=== PATIENT | male | born 1950 | race Caucasian/White ===

== ENCOUNTER 2017-02-10 14:43 | Inpatient (IN) | payer BC, OTHER ==
[2017-02-10] VITALS (8 sets, daily range): BP systolic 135–151; BP diastolic 64–72; PULSE 55–72; RESP 14–18; TEMP 97.6–97.9; O2SAT 95–98
[~2017-02-10] VITALS: Ht 182.9 cm; Wt 89.5 kg
[~2017-02-10 14:43] MED LIST: CLOP75 PO; LORTA5 PO; LOTE40TA PO; METF-324 PO; POTA75TA PO
[2017-02-10] MEDS ORDERED: IOHEXOL 350 MG/ML 10 ML VIAL (for RAD DIAG) IVCONTRAST ONE (14:44)
[2017-02-10] MEDS ORDERED: ASPIRIN 81 MG CHEW TAB PO ONE (15:00)
[2017-02-10] MEDS ORDERED: SODIUM CHLORIDE 0.9% FLUSH 10 ML FLUSH IVF PRN (15:00)
[2017-02-10 15:17] LABS: AUTOMATED NEUTROPHIL # 7.3 TH/MM3 (1.8-7.7); BASOPHIL % 0.5 % (0.0-2.0); EOSINOPHIL # 0.1 TH/MM3 (0-0.4); EOSINOPHIL % 1.1 % (0.0-4.0); HEMATOCRIT 37.5 % (39.0-51.0); HEMO FLAGS DIFF FINAL; LYMPH % 14.2 % (9.0-44.0); LYMPHOCYTE # 1.3 TH/MM3 (1.0-4.8); MEAN CELL VOLUME 91.5 FL (80.0-100.0); MEAN CORPUSCULAR HEMOGLOBIN 32.2 PG (27.0-34.0); MEAN CORPUSCULAR HGB CONC 35.2 % (32.0-36.0); MONO % 4.9 % (0.0-8.0); NEUT % 79.3 % (16.0-70.0); PLATELET COUNT 167 TH/MM3 (150-450); RED BLOOD COUNT 4.09 MIL/MM3 (4.50-5.90); RED CELL DISTRIBUTION WIDTH 13.1 % (11.6-17.2); WHITE BLOOD COUNT 9.2 TH/MM3 (4.0-11.0)
--- NOTE | 2017-02-10 15:19 | PD ---
HPI Chief Complaint: Chest Pain Time Seen by Provider: 14:52 Travel History International Travel<30 days: Yes Contact w/Intl Traveler<30days: Yes Name of Country Traveled to: [place] Traveled to known affect area: No History of Present Illness HPI Patient is a 66-year-old male presents emergency department for evaluation of chest pain.Patient states he was at home doing some chores when he had sudden onset of left-sided chest pain accompanied with diaphoresis and mild nausea without vomiting and feeling he is going to faint. He does have a history of coronary artery disease and stents placed several years ago at outside hospital. The patient also states that he had a cardiac catheterization over the summer of this year showing some mild blockages but nothing requiring intervention. 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 He states he didn't receive nitroglycerin by EMS in route and is beginning to feel better but the pain is starting to come back. Left chest radiating to the left shoulder, pressure, associated signs symptoms as above in context as above. PFSH Past Medical History Cardiac Catheterization: Yes Cardiovascular Problems: Yes (SD 2004 AND 2 STENTS ) High Cholesterol: Yes Chest Pain: Yes Coronary Artery Disease: Yes Diabetes: Yes (TYPE II ) Patient Takes Glucophage: No (PT CANT TELL ME HIS TYPE II MED) Hypertension: Yes Myocardial Infarction: Yes (2005) Past Surgical History Coronary Stent: Yes (X2) Social History Alcohol Use: No (QUIT 2013) Tobacco Use: Yes (1 PPD) Substance Use: No Allergies-Medications (Allergen,Severity, Reaction): Coded Allergies: No Known Allergies (Unverified Allergy, Unknown, 02/10/17) Reported Meds & Prescriptions Reported Meds & Active Scripts Active Reported Metformin (Metformin HCl) 1,000 Mg Tab 1,000 Mg PO DAILY With a meal Norvasc (Amlodipine Besylate) 5 Mg Tab 5 Mg PO DAILY Benazepril (Benazepril HCl) 40 Mg Tab 40 Mg PO DAILY Simvastatin 40 Mg Tab 40 Mg PO HS Aspirin 81 Mg Chew 81 Mg CHEW DAILY Review of Systems Except as stated in HPI: all other systems reviewed are Neg Physical Exam Narrative GENERAL: Well-developed well-nourished in no obvious distress. SKIN: Focused skin assessment warm/dry. HEAD: Atraumatic. Normocephalic. EYES: Pupils equal and round. No scleral icterus. No injection or drainage. ENT: No nasal bleeding or discharge. Mucous membranes pink and moist. NECK: Trachea midline. No JVD. CARDIOVASCULAR: Regular rate and rhythm. No murmur appreciated. 2+ bilateral equal pulses in all 4 extremity's. No reproducible chest pain. RESPIRATORY: No accessory muscle use. Clear to auscultation. Breath sounds equal bilaterally. GASTROINTESTINAL: Abdomen soft, non-tender, nondistended. Hepatic and splenic margins not palpable. MUSCULOSKELETAL: No obvious deformities. No clubbing. No cyanosis. No edema. NEUROLOGICAL: Awake and alert. No obvious cranial nerve deficits. Motor grossly within normal limits. Normal speech. PSYCHIATRIC: Appropriate mood and affect; insight and judgment normal. Data Data Last Documented VS Vital Signs Date Time Temp Pulse Resp B/P (MAP) Pulse Ox O2 Delivery O2 Flow Rate FiO2 02/10/17 14:59 98 Nasal Cannula 2.00 02/10/17 14:56 14 02/10/17 14:51 97.6 62 135/67 (89) Orders Orders Electrocardiogram (02/10/17 14:52) Ckmb (Isoenzyme) Profile (02/10/17 14:52) Complete Blood Count With Diff (02/10/17 14:52) Comprehensive Metabolic Panel (02/10/17 14:52) Magnesium (Mg) (02/10/17 14:52) Prothrombin Time / Inr (Pt) (02/10/17 14:52) Act Partial Throm Time (Ptt) (02/10/17 14:52) Troponin I (02/10/17 14:52) Chest, Single Ap (02/10/17 14:52) Ecg Monitoring (02/10/17 14:52) Iv Access Insert/Monitor (02/10/17 14:52) Oximetry (02/10/17 14:52) Oxygen Administration (02/10/17 14:52) Aspirin Chew (Aspirin Chew) (02/10/17 15:00) Sodium Chloride 0.9% Flush (Ns Flush) (02/10/17 15:00) Nitroglycerin Sl (Nitrostat Sl) (02/10/17 15:30) Ct Thorax/ Chest W Iv Contrast (02/10/17 ) Iohexol 350 Inj (Omnipaque 350 Inj) (02/10/17 14:44) Admit Order (Ed Use Only) (02/10/17 ) Activity Bed Rest With Brp (02/10/17 17:39) Vital Signs (Adult) Q4H (02/10/17 17:39) Cardiac Rhythm .As Directed (02/10/17 17:39) Notify Dr: Other .PRN (02/10/17 17:39) Notify Parameters (02/10/17 17:39) Resp Oxygen Nasal Cannula (02/10/17 ) Ckmb (Isoenzyme) Profile (02/10/17 17:39) Ckmb (Isoenzyme) Profile (02/10/17 20:39) Troponin I (02/10/17 17:39) Troponin I (02/10/17 20:39) Electrocardiogram (02/10/17:39) Electrocardiogram (02/10/17 20:39) ^ Obtain (02/10/17 17:39) Sodium Chloride 0.9% Flush (Ns Flush) (02/10/17 17:45) Sodium Chloride 0.9% Flush (Ns Flush) (02/10/17 21:00) Labs Laboratory Tests Test 02/10/17 15:00 White Blood Count 9.2 TH/MM3 Red Blood Count 4.09 MIL/MM3 Hemoglobin 13.2 GM/DL Hematocrit 37.5 % Mean Corpuscular Volume 91.5 FL Mean Corpuscular Hemoglobin 32.2 PG Mean Corpuscular Hemoglobin Concent 35.2 % Red Cell Distribution Width 13.1 % Platelet Count 167 TH/MM3 Mean Platelet Volume 8.9 FL Neutrophils (%) (Auto) 79.3 % Lymphocytes (%) (Auto) 14.2 % Monocytes (%) (Auto) 4.9 % Eosinophils (%) (Auto) 1.1 % Basophils (%) (Auto) 0.5 % Neutrophils # (Auto) 7.3 TH/MM3 Lymphocytes # (Auto) 1.3 TH/MM3 Monocytes # (Auto) 0.4 TH/MM3 Eosinophils # (Auto) 0.1 TH/MM3 Basophils # (Auto) 0.0 TH/MM3 CBC Comment DIFF FINAL Differential Comment Prothrombin Time 12.3 SEC Prothromb Time International Ratio 1.1 RATIO Activated Partial Thromboplast Time 20.7 SEC Blood Urea Nitrogen 20 MG/DL Creatinine 1.30 MG/DL Random Glucose 174 MG/DL Total Protein 6.6 GM/DL Albumin 3.6 GM/DL Calcium Level 8.6 MG/DL Magnesium Level 1.8 MG/DL Alkaline Phosphatase 64 U/L Aspartate Amino Transf (AST/SGOT) 16 U/L Alanine Aminotransferase (ALT/SGPT) 30 U/L Total Bilirubin 0.3 MG/DL Sodium Level 137 MEQ/L Potassium Level 4.0 MEQ/L Chloride Level 103 MEQ/L Carbon Dioxide Level 23.4 MEQ/L Anion Gap 11 MEQ/L Estimat Glomerular Filtration Rate 56 ML/MIN Total Creatine Kinase 65 U/L Troponin I LESS THAN 0.02 NG/ML MDM Medical Decision Making Medical Screen Exam Complete: Yes Emergency Medical Condition: Yes Differential Diagnosis ACS, AMI, pneumonia. Narrative Course Patient roomed emergency department, EKG is completely normal without any concerning ST segment changes. Patient is chest pain-free on arrival additional nitroglycerin was ordered because his pain was starting to return. This again relieved his symptoms. He was given aspirin, initial troponin negative. Chest x-ray showed a possible mediastinal mass and the patient was sent for CAT scan which revealed no significant abnormality. The patient was placed in the chest pain center for observation given his after-hours protocol orders were placed. His repeat troponin came back equivocal at 0.18. Given his history and his story for ACS the decision was made to heparinize the patient was determined to be low risk for adverse outcome of anticoagulation therapy. Discussed with patient need for upgrade to inpatient admission and he is agreeable. The patient was discussed with Dr. Winter who will admit. Diagnosis Primary Impression: Acute coronary syndrome Admitting Information Admitting Physician Requests: Admit Condition: Stable Chente Andujar MD Feb 10, 2017 15:19
[2017-02-10] MEDS ORDERED: NITROGLYCERIN 0.4 MG SL 25 TABS/BTL SL SCH (15:30)
[2017-02-10 15:32] LABS: ALT (GPT) 30 U/L (12-78); ANION GAP 11 MEQ/L (5-15); AST (GOT) 16 U/L (15-37); BICARBONATE 23.4 MEQ/L (21.0-32.0); BLOOD UREA NITROGEN 20 MG/DL (7-18); CHLORIDE 103 MEQ/L (98-107); GLOMERULAR FILTRATION RATE 56 ML/MIN (>89); MAGNESIUM 1.8 MG/DL (1.5-2.5); SODIUM (NA) 137 MEQ/L (136-145)
[2017-02-10] MEDS ORDERED: BENA40TA PO (15:32)
[2017-02-10] MEDS ORDERED: METF1000 PO (15:32)
[2017-02-10] MEDS ORDERED: ASPI-516 CHEW (15:32)
[2017-02-10] MEDS ORDERED: AMLO5 PO (15:32)
[2017-02-10] MEDS ORDERED: SIMV40TA PO (15:32)
--- NOTE | 2017-02-10 15:35 | RADRPT ---
EXAM DATE/TIME: 02/10/2017 15:01 [facility] COMPARISON: No previous studies available for comparison. INDICATIONS : Short of breath, chest pain. MEDICAL HISTORY : Myocardial infarction. SURGICAL HISTORY : Coronary artery stent. ENCOUNTER: Initial ACUITY: 1 day PAIN SCORE: 5/10 LOCATION: Bilateral chest FINDINGS: A single portable frontal view of the chest shows a focal nodular density involving the right paratra cheal stripe. This projects just below the right clavicle. Heart is normal in size. Lungs are clear. No effusions. A degenerative thoracic spine. 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 CONCLUSION: 1. Focal nodular density involving the right paratracheal stripe. Although this could relate to the p atient's vasculature I cannot exclude a mediastinal mass. Consider CT of the thorax with IV contrast to further evaluate. 2. No acute infiltrate or effusion. Bob Reed Jr., MD on February 10, 2017 at 15:31 Board Certified Radiologist. This report was verified electronically.
[2017-02-10 15:36] LABS: APTT (PATIENT) 20.7 SEC (24.3-30.1); INTERNATIONAL NORMALIZED RATIO 1.1 RATIO; PROTHROMBIN TIME - PATIENT 12.3 SEC (9.8-11.6)
[2017-02-10 15:37] LABS: ALKALINE PHOSPHATASE 64 U/L (45-117); TOTAL BILIRUBIN ADULT 0.3 MG/DL (0.2-1.0)
[2017-02-10 15:41] LABS: CREATINE KINASE 65 U/L (39-308)
--- NOTE | 2017-02-10 17:16 | RADRPT ---
EXAM DATE/TIME: 02/10/2017 16:52 [facility] COMPARISON: No previous studies available for comparison. INDICATIONS : Patient complains of chest pain and short of breath. IV CONTRAST: 97 cc Omnipaque 350 (iohexol) IV RADIATION DOSE: 5.61 CTDIvol (mGy) MEDICAL HISTORY : Cardiovascular disease. Hypertension. Diabetes mellitus type 2. SURGICAL HISTORY : coronary stent x 2 ENCOUNTER: Initial ACUITY: 1 day PAIN SCALE: 2/10 LOCATION: chest TECHNIQUE: Volumetric scanning of the chest was performed. Using automated exposure control and adjustment of t he mA and/or kV according to patient size, radiation dose was kept as low as reasonably achievable to obtain optimal diagnostic quality images. DICOM format image data is available electronically for review and comparison. Follow-up recommendations for detected pulmonary nodules are based at a minimum on nodule size and pa tient risk factors according to Fleischner Society Guidelines. FINDINGS: LUNGS: There is no consolidation or pneumothorax. No concerning pulmonary nodule is visualized. PLEURA: There is no pleural thickening or pleural effusion. MEDIASTINUM: Extensive coronary calcifications. Negative for simple emboli. AXILLAE: Within normal limits. No lymphadenopathy. SKELETAL: Within normal limits for patient age. MISCELLANEOUS: The visualized upper abdominal organs demonstrate no acute abnormality. CONCLUSION: Coronary calcifications, negative for central pulmonary emboli. Mohinder Zavala MD FACR on February 10, 2017 at 17:13 Board Certified Radiologist. This report was verified electronically.
[2017-02-10] MEDS ORDERED: SODIUM CHLORIDE 0.9% FLUSH 10 ML FLUSH IV FLUSH PRN ×2 (17:45→20:00)
[2017-02-10] MEDS ORDERED: HEPARIN-D5W 25,000 U/250 ML 250 ML IV PRN (19:30)
[2017-02-10] MEDS ORDERED: HEPARIN SODIUM - IV 10,000 UNITS/10 ML VIAL IV ONE (19:30)
[2017-02-10] MEDS ORDERED: GLUCAGON 1 MG/ML VIAL OTHER PRN (19:45)
[2017-02-10] MEDS ORDERED: DEXTROSE 50% IN WATER 50 ML VIAL(D50) IV PUSH PRN (19:45)
[2017-02-10] MEDS ORDERED: ACETAMINOPHEN 500 MG CPLT PO PRN (20:00)
[2017-02-10] MEDS ORDERED: MORPHINE SULFATE 4 MG/ML INJ IV PUSH PRN (20:00)
[2017-02-10] MEDS ORDERED: SODIUM CHLORIDE 0.9% FLUSH 10 ML FLUSH IV FLUSH SCH (21:00)
[2017-02-10] MEDS ORDERED: NON-FORMULARY DRUG (Simvastatin 40 MG) PO SCH (21:00)
[2017-02-10] MEDS ORDERED: CHLORHEXIDINE GLUCONATE 2 % 1 PACK (2 CLOTHS)(extra cloths) TOPICAL PRN (21:15)
[2017-02-10] MEDS: PRAVASTATIN SOD 80 MG TAB PO SCH (22:27)
[2017-02-10] MEDS: SODIUM CHLORIDE 0.9% FLUSH 10 ML FLUSH IV FLUSH SCH (22:27)
[2017-02-10] MEDS: INSULIN ASPART SUPPLEMENTAL SCALE SQ SCH (22:46)
--- NOTE | 2017-02-10 23:03 | HHI.HP ---
[facility] Unknown Admission Diagnosis Chest pain Diagnoses: (1) Acute coronary syndrome Chief Complaint: Left sided chest pain Travel History International Travel<30 Days: Yes Contact w/Intl Traveler <30 Da: Yes Name of Country Traveled to: [facility], [place] Traveled to Known Affected Are: No History of Present Illness Mr. Calvert is a very pleasant 66-year-old male with a history of coronary artery disease status post cardiac stenting 2 in 2004 in [place], hypertension , diabetes mellitus, and hyperlipidemia who is a "snowbird" from [place] who developed chest pain about half an hour before 2 PM today and presented to the emergency room for evaluation. He was found to have NSTEMI and symptoms consistent with ACS. The patient states he was at home working on chores when he began to experience moderate substernal chest pain that radiated to his left shoulder. His symptoms were accompanied by significant diaphoresis but he denies any associated shortness of breath, palpitations, nausea, or vomiting. He called his who told him he needed to go to the hospital. He reports his symptoms are similar to when he had his NM in 2004. 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 All of his doctors are in [place]. In October 2016, he had symptoms of frequent coughing spells and syncopal episodes. He saw his envelope stamping machine operator in [place] and a cardiac catheterization was done at that time. He states that he had some blockage that would take a "lino hammer", to get through according to his envelope stamping machine operator but no further management was indicated. He was told he had COPD and needed to quit smoking which he did for 6 weeks. But then he started smoking again - though he reduce the amount from 2-1/2 packs per day to one pack per day. He has been working very hard lately on [place]. He denies any recent fever, chills, shortness of breath, cough, cold symptoms, nausea, vomiting, diarrhea, black stool, tarry stool, or hematuria. Review of Systems Except as stated in HPI: all other systems reviewed are Neg Past Family Social History Past Medical History Coronary artery disease status post cardiac stenting stents with most recent cardiac catheterization in October 2016 Hyperlipidemia Hypertension Diabetes mellitus COPD Denies asthma, atrial fibrillation, congestive heart failure, liver problems, kidney problems, DVT, PE, strokes, seizures, thyroid problems, cancer, prostate problems. . Past Surgical History Right shoulder repair status post fracture . Reported Medications Reported Meds & Active Scripts Active Reported Metformin (Metformin HCl) 1,000 Mg Tab 1,000 Mg PO DAILY With a meal Norvasc (Amlodipine Besylate) 5 Mg Tab 5 Mg PO DAILY Benazepril (Benazepril HCl) 40 Mg Tab 40 Mg PO DAILY Simvastatin 40 Mg Tab 40 Mg PO HS Aspirin 81 Mg Chew 81 Mg CHEW DAILY . Allergies: Coded Allergies: No Known Allergies (Unverified Allergy, Unknown, 02/10/17) Active Ordered Medications Current Medications Aspirin (Aspirin Chew) 324 mg ONCE ONCE PO Last administered on 02/10/17 15: 13; Start 02/10/17 at 15:00; Stop 02/10/17 at 15:01; Status DC Sodium Chloride (NS Flush) 2 ml UNSCH PRN IVF FLUSH AFTER USING IV ACCESS; Start 02/10/17 at 15:00; Stop 02/10/17 at 19:20; Status DC Nitroglycerin (Nitrostat Sl) 0.4 mg Q5M SL Last administered on 02/10/17 15: 24; Start 02/10/17 at 15:30; Stop 02/10/17 at 15:36; Status DC Iohexol (Omnipaque 350 Inj) 97 ml STK-MED ONCE IVCONTRAST Last administered on 02/10/17 14:44; Start 02/10/17 at 14:44; Stop 02/10/17 at 17:07; Status DC Sodium Chloride (NS Flush) 2 ml UNSCH PRN IV FLUSH FLUSH AFTER USING IV ACCESS ; Start 02/10/17 at 17:45; Stop 02/10/17 at 19:59; Status DC Sodium Chloride (NS Flush) 2 ml BID IV FLUSH ; Start 02/10/17 at 21:00; Stop 02/10/17 at 21:00; Status DC Heparin Sodium (Porcine) (Heparin Inj) 4,000 units ONCE ONCE IV Last administered on 02/10/17 19:51; Start 02/10/17 at 19:30; Stop 02/10/17 at 19 :31; Status DC Heparin Sodium/ Dextrose 250 ml @ 10 mls/hr TITRATE PRN IV Coagulation Management Last administered on 02/10/17 19:52; Start 02/10/17 at 19:30 Amlodipine Besylate (Norvasc) 5 mg DAILY PO ; Start 02/11/17 at 09:00 Aspirin (Aspirin Chew) 81 mg DAILY CHEW ; Start 02/11/17 at 09:00 Non-Formulary Medication 40 mg DAILY PO ; Start 02/11/17 at 09:00; Status UNV Non-Formulary Medication 40 mg HS PO ; Start 02/10/17 at 21:00; Status UNV Dextrose (D50w (Vial) Inj) 50 ml UNSCH PRN IV PUSH HYPOGLYCEMIA-SEE COMMENTS; Start 02/10/17 at 19:45 Glucagon (Glucagon Inj) 1 mg UNSCH PRN OTHER HYPOGLYCEMIA-SEE COMMENTS; Start 02/10/17 at 19:45 Insulin Aspart (NovoLOG SUPPLEMENTAL SCALE) 1 ACHS SLIDING SCALE SQ ; Start at 21:00 Lisinopril (Prinivil) 40 mg DAILY PO ; Start 02/11/17 at 09:00 Sodium Chloride (NS Flush) 2 ml BID IV FLUSH Last administered on 02/10/17 22 :27; Start 02/10/17 at 21:00 Sodium Chloride (NS Flush) 2 ml UNSCH PRN IV FLUSH FLUSH AFTER USING IV ACCESS ; Start 02/10/17 at 20:00 Acetaminophen (Tylenol) 500 mg Q4H PRN PO HEADACHE; Start 02/10/17 at 20:00 Morphine Sulfate (Morphine Inj) 2 mg Q3HR PRN IV PUSH PAIN SCALE 6 TO 10; Start 02/10/17 at 20:00 Pravastatin Sodium (Pravachol) 80 mg HS PO Last administered on 02/10/17 22: 27; Start 02/10/17 at 21:00 Miscellaneous Information Patient in critical care unit? Ass... [id number] ; Start 02/10/17 at 21:15 Chlorhexidine Gluconate (Chlorhexidine 2% Cloth) 3 pack DAILY@04 TOPICAL ; Start 02/11/17 at 04:00; Stop 02/15/17 at 04:01 Chlorhexidine Gluconate (Chlorhexidine 2% Cloth) 3 pack UNSCH PRN TOPICAL HYGIENIC CARE; Start 02/10/17 at 21:15; Stop 02/15/17 at 21:07 . Family History Father from myocardial infarction age 48 Half-sister from myocardial infarction age 48 Brother with NM in his late 40s . Social History Tobacco: Smoked 2-1/2 packs per day for many years, quit for 6 weeks and October 2016, now smoking 1 pack per day Alcohol: Rare social use, former heavy use greater than 10 years ago Illicit Drugs: Denies . Physical Exam Vital Signs Vital Signs Date Time Temp Pulse Resp B/P (MAP) Pulse Ox O2 Delivery O2 Flow Rate FiO2 02/10/17 21:12 97 02/10/17 21:00 97.9 72 16 151/72 (98) 96 02/10/17 19:52 02/10/17 19:32 56 18 150/64 (92) 95 Room Air 02/10/17 19:32 56 95 Room Air 02/10/17 18:45 58 17 145/68 (93) 98 Room Air 02/10/17 14:59 98 Nasal Cannula 2.00 02/10/17 14:56 14 98 Nasal Cannula 2.00 02/10/17 14:56 98 Nasal Cannula 2.00 02/10/17 14:51 97.6 62 18 135/67 (89) 95 Physical Exam GENERAL: This is an older male patient, in no apparent distress. SKIN: No rashes, ecchymoses or lesions. Cool and dry. Tanned from outdoor work. HEAD: Atraumatic. Normocephalic. EYES: No scleral icterus. No injection or drainage. ENT: Nose without bleeding, purulent drainage. NECK: Trachea midline. No JVD or lymphadenopathy. CARDIOVASCULAR: Regular rate and rhythm without murmurs, gallops, or rubs. RESPIRATORY: Clear to auscultation. Breath sounds with diminished air exchange noted, equal bilaterally. No wheezes, rales, or rhonchi. GASTROINTESTINAL: Abdomen soft, non-tender, nondistended. No guarding. MUSCULOSKELETAL: Extremities without clubbing, cyanosis, or edema. No calf tenderness. NEUROLOGICAL: Awake and alert. Motor and sensory grossly within normal limits. Normal speech. . Laboratory Laboratory Tests Test 02/10/17 15:00 02/10/17 17:50 02/10/17 21:00 02/10/17 21:10 White Blood Count 9.2 Red Blood Count 4.09 Hemoglobin 13.2 Hematocrit 37.5 Mean Corpuscular Volume 91.5 Mean Corpuscular Hemoglobin 32.2 Mean Corpuscular Hemoglobin Concent 35.2 Red Cell Distribution Width 13.1 Platelet Count 167 Mean Platelet Volume 8.9 Neutrophils (%) (Auto) 79.3 Lymphocytes (%) (Auto) 14.2 Monocytes (%) (Auto) 4.9 Eosinophils (%) (Auto) 1.1 Basophils (%) (Auto) 0.5 Neutrophils # (Auto) 7.3 Lymphocytes # (Auto) 1.3 Monocytes # (Auto) 0.4 Eosinophils # (Auto) 0.1 Basophils # (Auto) 0.0 CBC Comment DIFF FINAL Differential Comment Prothrombin Time 12.3 Prothromb Time International Ratio 1.1 Activated Partial Thromboplast Time 20.7 Blood Urea Nitrogen 20 Creatinine 1.30 Random Glucose 174 Total Protein 6.6 Albumin 3.6 Calcium Level 8.6 Magnesium Level 1.8 Alkaline Phosphatase 64 Aspartate Amino Transf (AST/SGOT) 16 Alanine Aminotransferase (ALT/SGPT) 30 Total Bilirubin 0.3 Sodium Level 137 Potassium Level 4.0 Chloride Level 103 Carbon Dioxide Level 23.4 Anion Gap 11 Estimat Glomerular Filtration Rate 56 Total Creatine Kinase 65 64 62 Troponin I LESS THAN 0.02 0.18 0.42 Result Diagram: 02/10/17 1500 02/10/17 1500 Imaging Last Impressions Chest X-Ray 02/10/17 1452 Signed Impressions: Service Date/Time: Friday, February 10, 2017 15:01 - CONCLUSION: 1. Focal nodular density involving the right paratracheal stripe. Although this could relate to the patient's vasculature I cannot exclude a mediastinal mass. Consider CT of the thorax with IV contrast to further evaluate. 2. No acute infiltrate or effusion. Bob Reed Jr., MD Chest CT 02/10/17 0000 Signed Impressions: Service Date/Time: Friday, February 10, 2017 16:52 - CONCLUSION: Coronary calcifications, negative for central pulmonary emboli. Mohinder Zavala MD FACR . Caprini VTE Risk Assessment Caprini VTE Risk Assessment: Mod/High Risk (score >= 2) Caprini Risk Assessment Model Point Value = 1 Point Value = 2 Point Value = 3 Point Value = 5 Age 41-60 Minor surgery BMI > 25 kg/m2 Swollen legs Varicose veins or History of unexplained or recurrent spontaneous Oral contraceptives or hormone replacement Sepsis (< 1 month) Serious lung disease, including pneumonia (< 1 month) Abnormal pulmonary function Acute myocardial infarction Congestive heart failure (< 1 month) History of inflammatory bowel disease Medical patient at bed rest Age 61-74 Arthroscopic surgery Major open surgery (> 45 min) Laparoscopic surgery (> 45 min) Malignancy Confined to bed (> 72 hours) Immobilizing plaster cast Central venous access Age >= 75 History of VTE Family history of VTE Factor V Leiden Prothrombin [id number] Lupus anticoagulant Anticardiolipin antibodies Elevated serum homocysteine Heparin-induced thrombocytopenia Other congenital or acquired thrombophilia Stroke (< 1 month) Elective arthroplasty Hip, pelvis, or leg fracture Acute spinal cord injury (< 1 month) Prophylaxis Regimen Total Risk Factor Score Risk Level Prophylaxis Regimen 0-1 Low Early ambulation 2 Moderate Order ONE of the following: *Sequential Compression Device (SCD) *Heparin 5000 units SQ BID 3-4 Higher Order ONE of the following medications: *Heparin 5000 units SQ TID *Enoxaparin/Lovenox 40 mg SQ daily (WT < 150 kg, CrCl > 30 mL/min) *Enoxaparin/Lovenox 30 mg SQ daily (WT < 150 kg, CrCl > 10-29 mL/min) *Enoxaparin/Lovenox 30 mg SQ BID (WT < 150 kg, CrCl > 30 mL/min) AND/OR *Sequential Compression Device (SCD) 5 or more Highest Order ONE of the following medications: *Heparin 5000 units SQ TID (Preferred with Epidurals) *Enoxaparin/Lovenox 40 mg SQ daily (WT < 150 kg, CrCl > 30 mL/min) *Enoxaparin/Lovenox 30 mg SQ daily (WT < 150 kg, CrCl > 10-29 mL/min) *Enoxaparin/Lovenox 30 mg SQ BID (WT < 150 kg, CrCl > 30 mL/min) AND *Sequential Compression Device (SCD) Assessment and Plan Problem List: (1) Acute coronary syndrome ICD Code: I24.9 - Acute ischemic heart disease, unspecified Status: Acute Assessment and Plan Mr. Calvert is a very pleasant 66-year-old male with a history of coronary artery disease status post cardiac stenting 2 in 2004 in [place], hypertension , diabetes mellitus, and hyperlipidemia who is a "snowbird" from [place] who developed chest pain about half an hour before 2 PM today and presented to the emergency room for evaluation. He was found to have NSTEMI and symptoms consistent with ACS. Acute coronary syndrome - Troponin I upward trending - Heparin drip - Nitroglycerin 0.4 mg sublingual when necessary for chest pain - Morphine 2 mg IV every 3 hours as needed for pain greater than5 - Continuous cardiac telemetry to monitor for arrhythmias - Nothing by mouth after midnight for possible heart catheterization - Consult cardiology - Type 2 Diabetes Mellitus - Hold metformin anticipating contrast use - Accu-Cheks before meals and at bedtime with low-dose NovoLog sliding scale coverage - Hypoglycemia protocol - Monitor trends and blood glucose readings and adjust treatments as indicated Hypertension - Continue home Amlodipine and Benazepril - Monitor trends in blood pressure readings and adjust treatments as needed Hyperlipidemia - Continue home statin therapy Tobacco Abuse - told patient he needed to quit smoking permanently; he expresses agreement DVT prophylaxis - on a heparin drip . Discussed Condition With Patient, patient's (his permission was obtained to conduct visit with his present), RN, and Dr. Winter Physician Certification 2 Midnight Certification Type: Admission for Inpatient Services Order for Inpatient Services The services are ordered in accordance with Medicare regulations or non- Medicare payer requirements, as applicable. In the case of services not specified as inpatient-only, they are appropriately provided as inpatient services in accordance with the 2-midnight benchmark. Estimated LOS (days): 3 days is the estimated time the patient will need to remain in the hospital, assuming treatment plan goals are met and no additional complications. Post-Hospital Plan: Home Meryl Grant Feb 10, 2017 23:03
[2017-02-11] VITALS (15 sets, daily range): BP systolic 123–150; BP diastolic 57–73; PULSE 54–61; RESP 16–28; TEMP 97.9–98.8; O2SAT 94–97
[2017-02-11 03:42] LABS: AUTOMATED NEUTROPHIL # 3.5 TH/MM3 (1.8-7.7); BASOPHIL # 0.1 TH/MM3 (0-0.2); BASOPHIL % 0.8 % (0.0-2.0); EOSINOPHIL # 0.2 TH/MM3 (0-0.4); EOSINOPHIL % 3.3 % (0.0-4.0); HEMATOCRIT 38.1 % (39.0-51.0); HEMO FLAGS DIFF FINAL; LYMPH % 34.8 % (9.0-44.0); LYMPHOCYTE # 2.3 TH/MM3 (1.0-4.8); MEAN CELL VOLUME 91.3 FL (80.0-100.0); MEAN CORPUSCULAR HEMOGLOBIN 31.6 PG (27.0-34.0); MEAN CORPUSCULAR HGB CONC 34.6 % (32.0-36.0); MONO % 7.9 % (0.0-8.0); NEUT % 53.2 % (16.0-70.0); PLATELET COUNT 181 TH/MM3 (150-450); RED BLOOD COUNT 4.17 MIL/MM3 (4.50-5.90); RED CELL DISTRIBUTION WIDTH 12.9 % (11.6-17.2); WHITE BLOOD COUNT 6.6 TH/MM3 (4.0-11.0)
[2017-02-11 03:50] LABS: APTT (PATIENT) 25.7 SEC (24.3-30.1)
[2017-02-11] MEDS: CHLORHEXIDINE GLUCONATE 2 % 1 PACK (2 CLOTHS)(taper/protocol) TOPICAL SCH (04:00)
[2017-02-11 04:05] LABS: BICARBONATE 27.9 MEQ/L (21.0-32.0); POTASSIUM 4.4 MEQ/L (3.5-5.1)
[2017-02-11] MEDS: NITROGLYCERIN 2% OINT 1 GM PACKET TOPICAL SCH ×3 (05:24→17:48)
[2017-02-11] MEDS: INSULIN ASPART SUPPLEMENTAL SCALE SQ SCH ×4 (08:00→21:00)
[2017-02-11] MEDS: LISINOPRIL 20 MG TAB PO SCH (08:54)
[2017-02-11] MEDS: ASPIRIN 81 MG CHEW TAB CHEW SCH (08:54)
[2017-02-11] MEDS: amLODIPine BESYLATE 5 MG TAB PO SCH (08:55)
[2017-02-11] MEDS: SODIUM CHLORIDE 0.9% FLUSH 10 ML FLUSH IV FLUSH SCH ×2 (08:55→21:00)
[2017-02-11] MEDS ORDERED: NON-FORMULARY DRUG (Benazepril 40 MG) PO SCH (09:00)
--- NOTE | 2017-02-11 09:41 | MB ---
cc: SARITA LEAHY DATE OF CONSULTATION: 02/11/2017 1950 REASON FOR CONSULTATION Chest pain. HISTORY OF PRESENT ILLNESS 66-year-old male with past medical history significant for CAD status post PCI in 2004, hypertension, diabetes, smoker, hyperlipidemia, that presented to the hospital for evaluation of weakness, dizziness, chest pain and diaphoresis. The patient has been started on heparin drip and consulted to cardiology for further management and evaluation. 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 REVIEW OF SYSTEMS Negative except for what is mentioned in HPI. PAST MEDICAL HISTORY 1. CAD status post PCI. 2. Hyperlipidemia. 3. Hypertension. 4. Diabetes. 5. COPD. PAST SURGICAL HISTORY 1. Right shoulder repair status post fracture. 2. PCI. MEDICATIONS Home medications: 1. Metformin. 2. Norvasc. 3. Benazepril. 4. Simvastatin. 5. Aspirin. ALLERGIES NO KNOWN DRUG ALLERGIES. FAMILY HISTORY Father from [place], half-sister with [place], brother with an [place] in late 40s. SOCIAL HISTORY He is a smoker. Denies illicit drug use or alcohol abuse. PHYSICAL EXAMINATION VITAL SIGNS: Temperature 98.2, respiratory rate 16, heart rate 55, blood pressure 133/60, O2 sat 94% on room air. GENERAL: He is awake, alert, oriented x3, in no acute distress. NECK: No JVD. No carotid bruits. HEART: Regular rate and rhythm. No murmurs, rubs or gallops. LUNGS: Clear to auscultation bilaterally. No wheezes, no rales. ABDOMEN: Benign. EXTREMITIES: No cyanosis or edema. Pulses throughout. DATA CBC hemoglobin 13, hematocrit 38, platelet count 181, INR 1.1. Chemistries sodium 140, potassium 4.4, BUN 16, creatinine 1.03, troponin 0.02, 0.18, 0.42, 0.62 and 0.59. Chest x-ray: There is nodular density involving the right paratracheal stripe, no acute infiltrate or effusion, CT of the thorax with IV contrast recommended. Chest CTA negative for PE. EKG shows sinus bradycardia with sinus arrhythmia. ASSESSMENT/PLAN 66-year-old male with known coronary artery disease, hypertension, diabetes, hyperlipidemia, active smoker, presented with chest pain, troponins minimally elevated, no EKG changes. He has been started on heparin drip for ACS protocol and consulted to cardiology. The patient has a nodule in the chest x-ray that malignancy cannot be ruled out. Given the patient's presentation of ACS, I think it is reasonable to repeat left heart cath to evaluate for progression of coronary artery disease. After the heart cath we will need to evaluate for the chest x-ray finding. Risk management of left heart cath plus/minus PCI including but not limited to neurovascular trauma, infection, bleeding, acute kidney injury, emergent bypass surgery, stroke and have been explained to the patient. The patient understands the risks and he is willing to proceed. Thank you for the opportunity to take part in the care of this patient. Further management to be determined. MD BILLY Morton/TAURUS /9:02 AM /9:12 AM IMRLANDE
[2017-02-11] MEDS ORDERED: MIDAZOLAM HCL 2 MG/2 ML VIAL ONE (10:13)
[2017-02-11] MEDS ORDERED: HEPARIN SODIUM - IV 10,000 UNITS/10 ML VIAL ONE (10:13)
[2017-02-11] MEDS ORDERED: VERAPAMIL HCL 5 MG/2 ML VIAL ONE (10:13)
[2017-02-11] MEDS ORDERED: HEPARIN-NS/PF INJ 1,000 ML ONE (10:13)
[2017-02-11 10:40] LABS: APTT (PATIENT) 27.8 SEC (24.3-30.1)
[2017-02-11] MEDS: CLOPIDOGREL 75 MG TAB PO SCH (11:30)
[2017-02-11] MEDS ORDERED: MISC INFORMATION XX ONE (11:30)
--- NOTE | 2017-02-11 11:30 | CATHPROC ---
[facility] HIS Report Study Information Study Number Admission Scheduled Start Study Start [id number] Feb 10 2017 7:50PM 02/11/2017 Feb 11 2017 9:56AM [facility] Cardiac Catheterization Admit Source Facility Department Other [facility] - Debridging Machine Operator Physician and Clinical Staff Initial Abdelrahman [employer] Managereva Graves RN, Eliceo Solutions Manager Cookie Ramírez,RT(R) Recorder Susan Miles,LUDWIN Scrub Isidoro Mims,RT(R) Procedures Performed Procedure Location (Site) Vessel Name Coronary Angiograms LCA Left Coronary Coronary Angiograms RCA Right Coronary L Heart Cath LV Gram-hand inj. LV LV Ventricle PTCA ADD ON'S Wire insertion Radial (right) Radial Art. Equipment Time Hot Head Machine Operator Description Size Mfg Part Number Used/Scraped COPILOT VALVE, BLEEDBACK [id number] 10:41 [employer] Used CONTROL *[id number] 10:54 [employer] WIRE, ASAHI FIELDER XT 190CM 180CM Used *[id number] 11:02 [employer] WIRE, COSTUME SPECIALIST 200 190CM 190CM Used *[id number] TRANSDUCER, TRUWAVE [id number] 10:14 MALAVE FAITH * Used W/STOCKCOCK *[id number] 07457-00 10:42 [employer] WIRE, CHOICE EXTRA 182CM 182CM Used *[id number] [id number] *[id number] [id number] *[id number] 10:14 [employer] PACK, CCL CUSTOM * Used *[id number] 10:14 [employer] SUPPORT, ARTERIAL ADULT 47482 *[id number] Used [id number] 10:49 [employer] BALLOON, 2.0 X 12MM EUPHORA 12MM Used *[id number] 10:41 [employer]/AVE EBU 3.5 Z2 GUIDE CATHETER FR 6 Used *[id number] 10:39 [employer] 30 JONATHAN INDEFLATOR Used *[id number] BAND, RADIAL COMPRESSION TR [id number] 11:09 [employer] MEDICAL 24CM Used SHORT 24 *[id number] 10:14 [employer] WIRE, 3MMJ .035 180CM 180CM Used *[id number] 10:14 NAMIC MANIFOLD, 4 PORT * Used *[id number] 10:14 [employer]COMED OMNIPAQUE, 350 MG, 150ML 150ML [id number] Used [id number] 10:14 [facility] BLANKET,WARM AIR CCL * Used *[id number] SHEATH, FR6 TRANSRADIAL [id number] 10:14 Mobile Safe Case FR 6 Used SLENDER 10CM *[id number] Equipment Model, Serial, Lot Number and Expiration Data Description Model Number Serial Number Lot Number Expiration Date BALLOON, 2.0 X 12MM EUPHORA [id number] 09-11-2018 History: Current Medications Medication Dosage/Unit Route Frequency Last Date/Time Taken Statins (any) NORVASC ASA History: Allergies Allergy Reaction No Known Allergies History: Risk Factors Family History of Hypertension Dyslipidemia Previous RI Previous Heart Failure Premature CAD Yes Yes Yes Yes No Prior Valve Prior PCI Prior PCIDate Prior CABG Surgery No Yes 03/29/2004 No Cerebrovascular Peripheral Artery Chronic Lung On Dialysis Diabetes Diabetes Therapy Disease Disease Disease No No No Yes Yes Oral History: Risk Factors Selection Items Current Smoker Diabetes Hyperlipidemia Hypercholesterolemia drug Tx History: Symptoms/Diagnosis Selection Items Chest pain SOB History: CV Disease Selection Items Known CAD History: Stress Tests Stress or Imaging Studies Performed No History: Other Disease Selection Items CAD COPD HTN History: Other Current Smoker Method Packs a Day Years Used Pack Years Yes Cigarettes 1 50 50 Labs Hgb (g/dl) Hct (%) WBC (l/cumm) Platelets (thousands) 11.60-17.00 35.00-51.00 4.00-11.00 150.00-450.00 13.2 38.1 6.6 181 Glucose (mg/dl) BUN (mg/dl) Creatinine (mg/dl) BUN:Creatinine (1:x) 74.00-106.00 7.00-18.00 0.50-1.30 10.00-20.00 124 16 1.0 16 Na (meq/l) K (meq/l) 136.00-145.00 3.50-5.10 140 4.4 INR (PTT:PT) 0.90-1.10 1.1 Troponin I (ng/ml) Troponin T (ng/ml) CPK-MB (ng/ML) 0.02-0.05 0.40-2.10 0.50-3.60 0.18 0.42 Not Drawn Medication Medication Total Dose (Bolus/Oral) Medication Total Dosage/Unit 1% XYLOCAINE 5 mL FENTANYL 100 mcg HEPARIN 5000 units RADIAL COCKTAIL 5 mL (Bolus) VERSED 2 mg Medications (Bolus/Oral) Medication Time Given Dosage/Unit Administered By Reason 02/11/2017 10:31:00 VERSED 2 mg Eliceo Graves RN, AM 2 mg VERSED given in lab by Eliceo Graves RN in Left Forearm via Peripheral IV. Ordered by Abdelrahman Soto. 02/11/2017 10:32:00 FENTANYL 50 mcg Eliceo Graves RN, AM 50 mcg FENTANYL given in lab by Eliceo Graves RN in Left Forearm via Peripheral IV. Ordered by Abdelrahman Clemons. 02/11/2017 10:32:47 1% XYLOCAINE 5 mL Abdelrahman Soto AM 5 mL 1% XYLOCAINE given in lab by Abdelrahman Soto in Right Radial via Subcutaneous. Ordered by Abdelrahman Garduno. 02/11/2017 10:33:38 Ntg 300mcg Verapamil 2.5mg Heparin RADIAL COCKTAIL 5 mL (Bolus) Abdelrahman Soto AM 2500U 5 mL (Bolus) RADIAL COCKTAIL given in lab by Abdelrahman Soto in Right Radial via Radial. Using [Malini ution Name]. Ordered by Abdelrahman Soto. Reason: Ntg 200mcg Verapamil 2.5mg Heparin 2500U. 02/11/2017 10:39:55 HEPARIN 5000 units Eliceo Graves RN, AM 5000 units HEPARIN given in lab by Eliceo Graves RN in Left Forearm via Peripheral IV. Ordered by Abdelrahman Garduno. 02/11/2017 10:52:55 FENTANYL 50 mcg Eliceo Graves RN, AM 50 mcg FENTANYL given in lab by Eliceo Graves RN in Left Forearm via Peripheral IV. Ordered by Abdelrahman Clemons. Initial Case Assessment Cardiovascular HR Rhythm NIBP Chest Pain 55 Regular 130/64 0 Edema Present Skin color Skin None Normal Warm Dry Circulatory - Right Pulses Dorsalis Pedis Posterior Tibial Femoral Radial 2 2 2 2 Scale (0,1,2,3,4,d) Circulatory - Left Pulses Dorsalis Pedis Posterior Tibial Femoral Radial 2 2 2 Scale (0,1,2,3,4,d) Circulatory - Lower Extremities Color Lower Right Color Lower Left Normal Normal Neurological State Oriented to time-place- Alert Moves all extremities person Respiration - General Respiration Rate SpO2 (%) (B/min) 16 95 Final Case Assessment Cardiovascular HR Rhythm NIBP Chest Pain 56 SB 127/70 0 Edema Present Skin color Skin None Normal Warm Dry Circulatory - Right Pulses Dorsalis Pedis Posterior Tibial Femoral Radial 2 2 2 2 Scale (0,1,2,3,4,d) Circulatory - Left Pulses Dorsalis Pedis Posterior Tibial Femoral Radial 2 2 2 Scale (0,1,2,3,4,d) Circulatory - Lower Extremities Color Lower Right Color Lower Left Normal Normal Neurological State Oriented to time-place- Alert Moves all extremities person Respiration - General Respiration Rate SpO2 (%) O2 (lpm) (B/min) 16 97 2 Chronological Log Time Study Chronological Log 10:05:00 Patient arrived via Bed. 10:05:01 Patient arrived via Bed. 10:05:03 Patient Name, D.O.B, / Armband Verified By R.N. 10:05:30 Consent signed by the physician and the patient and verified by the Debridging Machine Operator staff. 10:05:45 Pre-op and post- op instructions given; patient acknowledges understanding of instructions. 10:05:48 Patient has been NPO for More than 6Hrs. 10:06:00 Skin Breakdown-none per pt 10:06:15 Patient Warmer Placed on the Table. 10:06:20 Efrain Prominences Protected 10:10:15 Verbal Stimulation=2 Physical Stimulation=2 Airway=2 Respiration=2 TOTAL=8. (0=absent, 1=li mited, 2=present) 10:12:00 Presedation assessment performed by Debridging Machine Operator RN. Vitals capture started with the following parameters, Patient=Adult, Interval=3 min, Initial Pr mdjvsr=924 mmHg, 10:16:34 Deflation Rate=5 mmHg, Cuff placed on Left Arm 10:17:51 HR=56 bpm, POPF=326/64 mmhg, SpO2=94.0 %, Resp=17 B/min, Pain=0, [place]=10, Dang=2 10:18:00 Allens test performed on the right radial and ulnar artery by LUDWIN Fenton. 10:20:08 HR=55 bpm, UFUQ=771/63 mmhg, SpO2=95.0 %, Resp=20 B/min, Pain=0, [place]=10, Dang=2 10:23:49 HR=53 bpm, ZCTD=217/67 mmhg, SpO2=93.0 %, Resp=18 B/min, Pain=0, [place]=10, Dang=2 10:25:04 A # 20 IV was noted in the Forearm (right). Grade = 0 0.9NS connected by Cookie Estarda RN. Infu sing at [facility] 10:25:41 History and physical on the chart or being dictated. Assessment: Initial Case, HR=55 BPM, Rhythm=Regular, YPWI=400/64 mmhg, Chest Pain=0, Edema=None , Color=Normal, Skin = Warm, Dry Right Pulses: Saul Ped=2, Post Tib=2, Femoral=2, Radial=2 Left Pulses: Saul Ped=2, Post Tib=2, Femoral=2 10:25:43 Lower Right Extremities: Color=Normal Lower Left Extremities: Color=Normal Neurological: State=Alert, Ox3, PONCE Respiration: Resp=16 B/min, SpO2=95 % 10:25:59 Reference ECG taken 10:26:10 HR=61 bpm, SGMO=380/73 mmhg, SpO2=95.0 %, Resp=21 B/min, Pain=0, [place]=10, Dang=2 10:27:05 Right Radial and groin(s) prepped with 2% chlorhexidine, and draped after a 3 min. waiting time. 10:28:02 paged 10:28:53 Pressure channel 1 zeroed. 10:29:11 HR=52 bpm, LVDQ=664/67 mmhg, SpO2=94.0 %, Resp=18 B/min, Pain=0, [place]=10, Dang=2 10:30:29 MD arrived. 10:31:00 2 mg VERSED given in lab by Eliceo Graves RN in Left Forearm via Peripheral IV. Ordered by Abdelrahman Maurice. 10:32:00 50 mcg FENTANYL given in lab by Eliceo Graves RN in Left Forearm via Peripheral IV. Ordered by Abdelrahman Soto. 10:32:09 HR=60 bpm, TYSE=785/76 mmhg, SpO2=94.0 %, Resp=19 B/min, Pain=0, [place]=10, Dang=2 Time Out. Correct patient, correct procedure, correct physician, not loaded with contrast with surgical team present. 10:32:34 Time Out Concurred by and individual staff in procedure. 10:32:45 Case Start 5 mL 1% XYLOCAINE given in lab by Abdelrahman Soto in Right Radial via Subcutaneous. Ordered b y Brittany, 10:32:47 Abdelrahman. 10:32:56 Access site was Right Radial Artery. A SHEATH, FR6 TRANSRADIAL SLENDER 10CM FR 6 was advanced into the Radial (right) using the Perc utaneous 10:33:24 technique. 5 mL (Bolus) RADIAL COCKTAIL given in lab by Abdelrahman Soto in Right Radial via Radial. Clarence coronado [Solution Name]. 10:33:38 Ordered by Abdelrahman Soto. Reason: Ntg 200mcg Verapamil 2.5mg Heparin 2500U. A JR 4.0 INFINITI CATHETER FR 5 was advanced over a wire. OMNIPAQUE, 350 MG, 150ML 150ML was us ed for 10:33:43 injections. Recorded Pressure: LV, HR=58, Condition=Condition 1 10:34:31 (Left Ventricle) LV 99/2/13 10:34:46 The LV was manually injected with 8 cc's and visualized. OMNIPAQUE, 350 MG, 150ML 150ML use d. Recorded Pressure: LV, Ao, HR=73, Condition=Condition 1 10:35:03 (Left Ventricle) LV 100/12/8, (Aorta) Ao 122/13/75 10:35:13 HR=59 bpm, JZRH=344/55 mmhg, SpO2=90.0 %, Resp=25 B/min, Pain=0, [place]=10, Dang=2 10:35:19 The RCA was injected and visualized at various angles. OMNIPAQUE, 350 MG, 150ML 150ML used . After removing the current catheter a JL 3.5 INFINITI CATHETER FR 5 was advanced over a WIRE, 3 MMJ .035 180CM 10:36:21 180CM. 10:37:16 The LCA was injected and visualized at various angles. OMNIPAQUE, 350 MG, 150ML 150ML used . Recorded Pressure: Ao, HR=54, Condition=Condition 1 10:37:53 (Aorta) Ao 101/45/66 10:38:07 HR=55 bpm, XYOQ=623/55 mmhg, SpO2=87.0 %, Resp=18 B/min, Pain=0, [place]=8, Dang=3 10:38:33 OMNIPAQUE, 350 MG, 150ML 150ML and 30 JONATHAN INDEFLATOR added. 10:38:53 Catheter was removed 10:39:08 2L O2 applied by LUDWIN Fenton. 10:39:55 5000 units HEPARIN given in lab by Eliceo Graves RN in Left Forearm via Peripheral IV. Order ed by Abdelrahman Soto. 10:41:44 HR=58 bpm, TPTF=934/63 mmhg, SpO2=91.0 %, Resp=17 B/min A EBU 3.5 Z2 GUIDE CATHETER FR 6 was advanced over a wire. OMNIPAQUE, 350 MG, 150ML 150ML was u sed for 10:41:45 injections. 10:42:42 Wire removed 10:44:43 HR=60 bpm, OEJK=023/56 mmhg, SpO2=92.0 %, Resp=16 B/min, Pain=0, [place]=7, Dang=3 10:45:07 A WIRE, CHOICE EXTRA 182CM 182CM was inserted via Radial (right). 10:47:10 HR=51 bpm, KWVZ=519/54 mmhg, SpO2=92.0 %, Resp=13 B/min, Pain=0, [place]=7, Dang=3 10:50:08 HR=57 bpm, TNTQ=733/65 mmhg, SpO2=93.0 %, Resp=16 B/min, Pain=0, Georgia=7, Dang=3 10:51:28 A BALLOON, 2.0 X 12MM EUPHORA 12MM was inserted over WIRE, CHOICE EXTRA 182CM 182CM via the LAD Prox. 10:52:55 50 mcg FENTANYL given in lab by Eliceo Graves RN in Left Forearm via Peripheral IV. Ordered by Abdelrahman Soto. 10:53:13 HR=58 bpm, YIBV=387/65 mmhg, SpO2=94.0 %, Resp=15 B/min, Pain=0, Georgia=8, Dang=2 10:54:14 Balloon Removed. 10:54:41 A WIRE, [employer] FIELDER XT 190CM 180CM was inserted via Radial (right). 10:57:02 HR=51 bpm, TIWZ=425/50 mmhg, SpO2=95.0 %, Resp=14 B/min, Pain=0, Georgia=7, Dang=3 10:59:58 HR=54 bpm, ZLAJ=728/49 mmhg, SpO2=94.0 %, Resp=13 B/min, Pain=0, Georgia=7, Dang=3 11:00:49 Activated Clotting Time Drawn 11:01:40 Choice PT extra support Wire removed 11:02:13 HR=56 bpm, DUFW=488/57 mmhg, SpO2=95.0 %, Resp=13 B/min, [place]=7 11:03:30 A WIRE, COSTUME SPECIALIST 200 190CM 190CM was inserted via Radial (right). 11:05:13 HR=49 bpm, ECDI=248/55 mmhg, SpO2=94.0 %, Resp=15 B/min, Pain=0, Georgia=7, Dang=2 11:05:36 A BALLOON, 2.0 X 12MM EUPHORA 12MM was inserted over WIRE, COSTUME SPECIALIST 200 190CM 190CM via the LA D Prox. 11:06:10 Fielder Wire removed 11:08:11 ACT (Normal Range 90-180) = 381 11:08:33 Doctor Of Osteopathy Wire removed 11:08:41 Catheter was removed 11:08:46 Case End 11:09:01 HR=53 bpm, ZSKR=331/59 mmhg, SpO2=95.0 %, Resp=16 B/min, Pain=0, Georgia=10, Dang=2 Radial Compression Device Used. 11 mLs of air placed in BAND, RADIAL COMPRESSION TR SHORT 24 24 CM. Affected 11:09:22 hand 95 % O2 saturation. 11:10:10 No case complications noted. 11:10:11 Cine recording checked. 11:10:22 IMC called. Spoke to Irasema 11:11:16 HR=57 bpm, CTGB=426/67 mmhg, SpO2=95.0 %, Resp=19 B/min, Pain=0, Georgia=10, Dang=2 11:12:27 Bedside Report will be given. 11:14:14 HR=51 bpm, FPQB=578/70 mmhg, SpO2=94.0 %, Resp=18 B/min, Pain=0, [place]=10, Dang=2 Assessment: Final Case, HR=56 BPM, Rhythm=SB, RMZK=498/70 mmhg, Chest Pain=0, Edema=None, [place] r=Normal, Skin = Warm, Dry Right Pulses: Saul Ped=2, Post Tib=2, Femoral=2, Radial=2 Left Pulses: Saul Ped=2, Post Tib=2, Femoral=2 11:18:06 Lower Right Extremities: Color=Normal Lower Left Extremities: Color=Normal Neurological: State=Alert, Ox3, PONCE Respiration: Resp=16 B/min, SpO2=97 %, O2=2 lpm 11:20:03 Patient moved to stretcher 11:20:06 A Left Heart Cath was performed. End Study - Contrast Media Used In Study Contrast Total Opened (mL) Total Used (mL) Total Wasted (mL) Omnipaque 150 80 70 End Study - Maximum Contrast Load Max Contrast Load (mL) 487.5 End Study - Radiation Exposure Fluoro Time (minutes) 20.5 End Study - Patient Disposition Complications Transferred To Interventional Outcome No Critical Care Bed unsuccessful
[2017-02-11] MEDS ORDERED: PILL SPLITTER OTHER PRN (12:00)
[2017-02-11] MEDS: SODIUM CHLOR 0.9% 1000 ML INJ 1,000 ML IV SCH ×2 (12:06→22:09)
--- NOTE | 2017-02-11 12:21 | MA ---
cc: SARITA LEAHY DATE OF 1950 DATE OF PROCEDURE February 11, 2017 PROCEDURE PERFORMED 1. Left heart catheterization. 2. Selective right and left coronary angiography. 3. Left ventriculogram. INDICATION [id number] [place], chest pain. PROCEDURE DESCRIPTION Consent signed. The patient was prepped and draped in sterile fashion using 1% lidocaine for local anesthesia and a micropuncture kit. A 6-Korean sheath was inserted into the right radial artery, then selective right and left coronary angiography was performed with JR-4 and JL-3.5 diagnostic catheters. Angiography was taken in multiple views. The JR diagnostic catheter was introduced over a wire to the ventricle, followed by pressure recordings, left ventriculogram, pullback. The patient had a CT of the LAD which is known to him with a good right coronary artery and a dominant left circumflex artery. The LAD is getting collaterals from the diagonal and the circumflex artery and there appears to be a micro-shadow. We attempted to open the LAD, however, after several wire instillations the vessel was not able to be crossed, thus the procedure was terminated. The patient tolerated the procedure well without complications. ESTIMATED BLOOD LOSS Less than 30 cc. TOTAL CONTRAST 80 cc. The right wrist radial access site was closed with a TR-Band. The patient was given IV heparin for anticoagulation during the procedure and also antispasmodic cocktail given. ANGIOGRAPHIC RESULTS LEFT VENTRICLE: The ventricular pressure was 112 with an LVEDP of 8. The aortic pressure was 101/45 with a mean pressure of 66. There was no gradient upon pullback from the left ventricle to the aorta. Left ventriculogram revealed symmetrically braden ventricle with an estimated ejection fraction of 60%. ANGIOGRAPHY 1. RIGHT CORONARY ARTERY: The right coronary artery is a nondominant vessel it giving a PLB branch. The RCA is patent with PATI-3 flow, nonobstructive coronary artery disease. He has two right ventricular branches that are patent with PATI-3 flow and nonobstructive artery disease. 2. LEFT MAIN: The left main is short, patent, is giving off the LAD and the left circumflex artery. 3. LEFT CIRCUMFLEX: The left circumflex artery is a dominant vessel giving off blood supply to the PDA. It is a big vessel measuring more than 4 mm, has patent OM1, OM2, OM3, OM4 vessels. He does have a small OM2 that appears to have PATI-2 flow. However, this vessel is small, is most likely the reason of his elevated troponins, however, is too small to fix. 4. LAD: The LAD has a proximal stent that is 100% occluded. Per the patient the LAD stent has been closed for a long time. The LAD is being filled distally by collaterals that come from the diagonal vessels as well as from the OM vessels of the left circumflex artery. CONCLUSION [place] vessel coronary artery disease with MOBILE LOUNGE DRIVER of the LAD, preserved ejection fraction and patent stent in the left circumflex artery. RECOMMENDATIONS The patient will go back to the ICU bed. He will optimize medication for coronary artery disease with aspirin, Plavix, statins, beta rober, ESTEFANÍA inhibitors and long-acting nitrates. MD BILLY Morton/ROMEL /11:22 AM /12:09 PM MIRLANDE
[2017-02-11] MEDS ORDERED: IOHEXOL 350 MG/ML 100 ML BTL (for Cath Lab) OTHER ONE (14:24)
--- NOTE | 2017-02-11 14:43 | HHI.PR ---
Objective Vitals Vital Signs Date Time Temp Pulse Resp B/P (MAP) Pulse Ox O2 Delivery O2 Flow Rate FiO2 02/11/17 12:00 58 02/11/17 12:00 97.9 58 22 136/57 (83) 94 02/11/17 10:00 60 02/11/17 08:51 94 21 02/11/17 08:00 57 02/11/17 08:00 98.5 57 28 146/72 (96) 95 02/11/17 06:00 55 02/11/17 04:00 98.5 55 16 133/60 (84) 95 02/11/17 04:00 55 02/11/17 02:00 54 02/11/17 00:00 98.2 54 16 150/66 (94) 97 02/11/17 00:00 54 02/10/17 22:00 59 02/10/17 21:20 55 02/10/17 21:12 97 02/10/17 21:00 97.9 72 16 151/72 (98) 96 02/10/17 19:52 02/10/17 19:32 56 18 150/64 (92) 95 Room Air 02/10/17 19:32 56 95 Room Air 02/10/17 18:45 58 17 145/68 (93) 98 Room Air 02/10/17 14:59 98 Nasal Cannula 2.00 02/10/17 14:56 14 98 Nasal Cannula 2.00 02/10/17 14:56 98 Nasal Cannula 2.00 02/10/17 14:51 97.6 62 18 135/67 (89) 95 I/O 02/10/17 02/10/17 02/10/17 02/11/17 02/11/17 02/11/17 07:00 15:00 23:00 07:00 15:00 23:00 Intake Total 240 ml Output Total 1625 ml Balance -1385 ml Intake Oral 240 ml Output Urine Total 1625 ml Result Diagram: 02/11/1724502/11/176 A/P Problem List: (1) Acute coronary syndrome ICD Code: I24.9 - Acute ischemic heart disease, unspecified Status: Acute Xavier Merrill MD Feb 11, 2017 14:43
--- NOTE | 2017-02-11 16:06 | HHI.PR ---
Subjective Remarks Denies cp/sob. sp cardiac catheterization. Objective Vitals Vital Signs Date Time Temp Pulse Resp B/P (MAP) Pulse Ox O2 Delivery O2 Flow Rate FiO2 02/11/17 15:00 59 02/11/17 14:00 56 02/11/17 12:00 58 02/11/17 12:00 97.9 58 22 136/57 (83) 94 02/11/17 10:00 60 02/11/17 08:51 94 21 02/11/17 08:00 57 02/11/17 08:00 98.5 57 28 146/72 (96) 95 02/11/17 06:00 55 02/11/17 04:00 98.5 55 16 133/60 (84) 95 02/11/17 04:00 55 02/11/17 02:00 54 02/11/17 00:00 98.2 54 16 150/66 (94) 97 02/11/17 00:00 54 02/10/17 22:00 59 02/10/17 21:20 55 02/10/17 21:12 97 02/10/17 21:00 97.9 72 16 151/72 (98) 96 02/10/17 19:52 02/10/17 19:32 56 18 150/64 (92) 95 Room Air 02/10/17 19:32 56 95 Room Air 02/10/17 18:45 58 17 145/68 (93) 98 Room Air I/O 02/10/17 02/10/17 02/10/17 02/11/17 02/11/17 02/11/17 07:00 15:00 23:00 07:00 15:00 23:00 Intake Total 240 ml Output Total 1625 ml Balance -1385 ml Intake Oral 240 ml Output Urine Total 1625 ml Result Diagram: 02/11/17 0246 02/11/17 0246 Imaging Last Impressions Chest X-Ray 02/10/17 1452 Signed Impressions: Service Date/Time: Friday, February 10, 2017 15:01 - CONCLUSION: 1. Focal nodular density involving the right paratracheal stripe. Although this could relate to the patient's vasculature I cannot exclude a mediastinal mass. Consider CT of the thorax with IV contrast to further evaluate. 2. No acute infiltrate or effusion. Bob Reed Jr., MD Chest CT 02/10/17 0000 Signed Impressions: Service Date/Time: Friday, February 10, 2017 16:52 - CONCLUSION: Coronary calcifications, negative for central pulmonary emboli. Mohinder Zavala MD FACR Objective Remarks AAOx3 nad no resp distress CLear lungs BL Abdomen soft, nt, nd no edema in extremities Procedures DATE OF PROCEDURE February 11, 2017 PROCEDURE PERFORMED 1. Left heart catheterization. 2. Selective right and left coronary angiography. 3. Left ventriculogram. Medications and IVs Current Medications Medications (Trade) Dose Ordered Sig/Radha Route Start Time Stop Time Status Last Admin (Norvasc) 5 mg DAILY PO 02/11/17 09:00 02/11/17 08:55 (Aspirin Chew) 81 mg DAILY CHEW 02/11/17 09:00 02/11/17 08:54 (D50w (Vial) Inj) 50 ml UNSCH PRN IV PUSH 02/10/17 19:45 (Glucagon Inj) 1 mg UNSCH PRN OTHER 02/10/17 19:45 (NovoLOG SUPPLEMENTAL SCALE) 1 ACHS SLIDING SCALE SQ 02/10/17 21:00 02/10/17 22:46 (Prinivil) 40 mg DAILY PO 02/11/17 09:00 02/11/17 08:54 (NS Flush) 2 ml BID IV FLUSH 02/10/17 21:00 02/11/17 08:55 (NS Flush) 2 ml UNSCH PRN IV FLUSH 02/10/17 20:00 (Tylenol) 500 mg Q4H PRN PO 02/10/17 20:00 (Morphine Inj) 2 mg Q3HR PRN IV PUSH 02/10/17 20:00 (Pravachol) 80 mg HS PO 02/10/17 21:00 02/10/17 22:27 Miscellaneous Information Patient in critical care unit? Ass... Q361D .XX 02/10/17 21:15 (Chlorhexidine 2% Cloth) 3 pack DAILY@04 TOPICAL 02/11/17 04:00 02/15/17 04:01 (Chlorhexidine 2% Cloth) 3 pack UNSCH PRN TOPICAL 02/10/17 21:15 02/15/17 21:07 (Nitroglycerin 2% Oint) 1 inch Q6HR TOPICAL 02/11/17 06:00 02/11/17 05:24 Sodium Chloride 1,000 ml @ 100 mls/hr Q10H IV 02/11/17 11:21 02/11/17 23:20 02/11/17 12:06 (Plavix) 75 mg DAILY PO 02/11/17 11:30 (Imdur) 30 mg DAILY@07 PO 02/12/17 07:00 (Lipitor) 80 mg DAILY PO 02/12/17 09:00 (Lopressor) 12.5 mg Q12HR PO 02/11/17 21:00 (Pill Splitter) 1 ea UNSCH PRN OTHER 02/11/17 12:00 Urinary Catheter: No Vascular Central Line Catheter: No A/P Problem List: (1) Acute coronary syndrome ICD Code: I24.9 - Acute ischemic heart disease, unspecified Status: Acute Plan: Mr. Calvert is a very pleasant 66-year-old male with a history of coronary artery disease status post cardiac stenting 2 in 2004 in [place], hypertension, diabetes mellitus, and hyperlipidemia who is a "snowbird" from [place] who developed chest pain about half an hour before 2 PM today and presented to the emergency room for evaluation. He was found to have NSTEMI and symptoms consistent with ACS. The patient was admitted to the medical floor, placed on heparin drip. - Nitroglycerin 0.4 mg sublingual when necessary for chest pain - Morphine 2 mg IV every 3 hours as needed for pain greater than5 - Continuous cardiac telemetry to monitor for arrhythmias. - Cardiology - The patient status post cardiac catheterization with findings of [place] vessel coronary artery disease with CT of the LAD, preserved ejection fraction and patent stent in the left circumflex artery. RECOMMENDATIONS from cardiology The patient will go back to the ICU bed. He will optimize medication for coronary artery disease. The patient should be on aspirin, Plavix, statins, beta rober, ESTEFANÍA inhibitors and long-acting nitrates. (2) Diabetes ICD Code: E11.9 - Type 2 diabetes mellitus without complications Plan: - Continue to hold metformin anticipating contrast use - Accu-Cheks before meals and at bedtime with low-dose NovoLog sliding scale coverage - Hypoglycemia protocol - Monitor trends and blood glucose readings and adjust treatments as indicated (3) Hyperlipidemia ICD Code: E78.5 - Hyperlipidemia, unspecified Plan: Continue statin. Check fasting lipid profile. (4) HTN (hypertension) ICD Code: I10 - Essential (primary) hypertension Plan: Continue home antihypertensive medications which include amlodipine and benazepril. - Monitor trends in blood pressure readings and adjust treatments as needed Blood pressure stable. (5) Tobacco abuse ICD Code: Z72.0 - Tobacco use Plan: Advised smoking cessation. Assessment and Plan GI prophylaxis: At PPI. DVT prophylaxis: SCDs, on aspirin and Plavix. Discharge Planning Continue to monitor in the intensive care unit. Discharge pending cardiology clearance. Problem Qualifiers (1) Diabetes: Qualified Codes: E11.8 - Type 2 diabetes mellitus with unspecified complications (2) Hyperlipidemia: Qualified Codes: E78.5 - Hyperlipidemia, unspecified Xavier Merrill MD Feb 11, 2017 16:06
--- NOTE | 2017-02-11 16:10 | EKG ---
Date Performed: 02/10/2017 Time Performed: 14:50:46 PTAGE: 66 years EKG: Sinus rhythm WITH SINUS ARRHYTHMIA NORMAL ECG NO PREVIOUS TRACING DOCTOR: Coleen Blackwood Interpretating Date/Time 02/11/2017 16:06:33
--- NOTE | 2017-02-11 16:26 | EKG ---
Date Performed: 02/10/2017 Time Performed: 18:47:19 PTAGE: 66 years EKG: SINUS BRADYCARDIA WITH SINUS ARRHYTHMIA BORDERLINE ECG PREVIOUS TRACING : 02/10/2017 14.50 Compared to prior tracing no significant change DOCTOR: Coleen Blackwood Interpretating Date/Time 02/11/2017 16:25:58
[2017-02-11] MEDS: METOPROLOL TARTRATE 25 MG TAB PO SCH (21:00)
[2017-02-11] MEDS: PRAVASTATIN SOD 80 MG TAB PO SCH (22:10)
[2017-02-12] VITALS (8 sets, daily range): BP systolic 115–136; BP diastolic 53–70; PULSE 51–69; RESP 19–33; TEMP 97.8–98.8; O2SAT 95–96
[2017-02-12] MEDS: CHLORHEXIDINE GLUCONATE 2 % 1 PACK (2 CLOTHS)(taper/protocol) TOPICAL SCH (04:00)
[2017-02-12] MEDS: NITROGLYCERIN 2% OINT 1 GM PACKET TOPICAL SCH ×3 (05:39→12:00)
[2017-02-12] MEDS ORDERED: ISOSORBIDE MONONITRATE 30 MG TAB PO SCH (07:00)
[2017-02-12] MEDS: INSULIN ASPART SUPPLEMENTAL SCALE SQ SCH (08:00)
[2017-02-12] MEDS: METOPROLOL TARTRATE 25 MG TAB PO SCH (08:37)
[2017-02-12] MEDS: ASPIRIN 81 MG CHEW TAB CHEW SCH (08:37)
[2017-02-12] MEDS: amLODIPine BESYLATE 5 MG TAB PO SCH (08:37)
[2017-02-12] MEDS: CLOPIDOGREL 75 MG TAB PO SCH (08:37)
[2017-02-12] MEDS: LISINOPRIL 20 MG TAB PO SCH (08:37)
[2017-02-12] MEDS: SODIUM CHLORIDE 0.9% FLUSH 10 ML FLUSH IV FLUSH SCH (08:38)
[2017-02-12] MEDS ORDERED: ATORVASTATIN 80 MG TAB PO SCH (09:00)
--- NOTE | 2017-02-12 09:30 | PD.CARD.PN ---
Subjective Subjective Remarks no cv complaints s/p [facility] Objective Medications Current Medications Medications (Trade) Dose Ordered Sig/Radha Route Start Time Stop Time Status Last Admin (Norvasc) 5 mg DAILY PO 02/11/17 09:00 02/12/17 08:37 (Aspirin Chew) 81 mg DAILY CHEW 02/11/17 09:00 02/12/17 08:37 (D50w (Vial) Inj) 50 ml UNSCH PRN IV PUSH 02/10/17 19:45 (Glucagon Inj) 1 mg UNSCH PRN OTHER 02/10/17 19:45 (NovoLOG SUPPLEMENTAL SCALE) 1 ACHS SLIDING SCALE SQ 02/10/17 21:00 02/11/17 21:00 (Prinivil) 40 mg DAILY PO 02/11/17 09:00 02/12/17 08:37 (NS Flush) 2 ml BID IV FLUSH 02/10/17 21:00 02/12/17 08:38 (NS Flush) 2 ml UNSCH PRN IV FLUSH 02/10/17 20:00 (Tylenol) 500 mg Q4H PRN PO 02/10/17 20:00 (Morphine Inj) 2 mg Q3HR PRN IV PUSH 02/10/17 20:00 (Pravachol) 80 mg HS PO 02/10/17 21:00 02/11/17 22:10 Miscellaneous Information Patient in critical care unit? Ass... Q361D .XX 02/10/17 21:15 (Chlorhexidine 2% Cloth) 3 pack DAILY@04 TOPICAL 02/11/17 04:00 02/15/17 04:01 02/12/17 04:00 (Chlorhexidine 2% Cloth) 3 pack UNSCH PRN TOPICAL 02/10/17 21:15 02/15/17 21:07 (Nitroglycerin 2% Oint) 1 inch Q6HR TOPICAL 02/11/17 06:00 02/11/17 17:48 (Plavix) 75 mg DAILY PO 02/11/17 11:30 02/12/17 08:37 (Imdur) 30 mg DAILY@07 PO 02/12/17 07:00 02/12/17 06:03 (Lipitor) 80 mg DAILY PO 02/12/17 09:00 02/12/17 08:37 (Lopressor) 12.5 mg Q12HR PO 02/11/17 21:00 02/12/17 08:37 (Pill Splitter) 1 ea UNSCH PRN OTHER 02/11/17 12:00 Vital Signs / I&O Vital Signs Date Time Temp Pulse Resp B/P (MAP) Pulse Ox O2 Delivery O2 Flow Rate FiO2 02/12/17 09:17 96 21 02/12/17 08:00 61 02/12/17 08:00 98.3 61 33 130/68 (88) 96 02/12/17 06:00 52 02/12/17 04:00 97.8 54 21 136/70 (92) 96 02/12/17 04:00 53 02/12/17 02:00 51 02/12/17 00:00 97.9 54 19 115/53 (73) 95 02/12/17 00:00 54 02/11/17 22:00 61 02/11/17 20:35 97 21 02/11/17 20:00 59 02/11/17 20:00 98.3 59 26 136/73 (94) 97 02/11/17 18:00 57 02/11/17 16:00 54 02/11/17 16:00 98.8 55 19 123/62 (82) 96 02/11/17 15:00 59 02/11/17 14:00 56 02/11/17 12:00 58 02/11/17 12:00 97.9 58 22 136/57 (83) 94 02/11/17 10:00 60 I/O 02/11/17 02/11/17 02/11/17 02/12/17 02/12/17 02/12/17 07:00 15:00 23:00 07:00 15:00 23:00 Intake Total 240 ml 2200 ml 1240 ml Output Total 1625 ml 1350 ml 1550 ml Balance -1385 ml 850 ml -310 ml Intake Oral 240 ml 1200 ml 240 ml IV Total 1000 ml 1000 ml Output Urine Total 1625 ml 1350 ml 1550 ml # Bowel Movements 0 Physical Exam GENERAL: Well-nourished, well-developed patient. SKIN: Warm and dry. HEAD: Normocephalic. EYES: No scleral icterus. No injection or drainage. NECK: Supple, trachea midline. No JVD or lymphadenopathy. CARDIOVASCULAR: Regular rate and rhythm without murmurs, gallops, or rubs. RESPIRATORY: Breath sounds equal bilaterally. No accessory muscle use. GASTROINTESTINAL: Abdomen soft, non-tender, nondistended. EXTREMITIES: No cyanosis, or edema. NEUROLOGICAL: Awake, alert, and oriented x 3. Non-focal. Imaging Last Impressions Chest X-Ray 02/10/17 1452 Signed Impressions: Service Date/Time: Friday, February 10, 2017 15:01 - CONCLUSION: 1. Focal nodular density involving the right paratracheal stripe. Although this could relate to the patient's vasculature I cannot exclude a mediastinal mass. Consider CT of the thorax with IV contrast to further evaluate. 2. No acute infiltrate or effusion. Bob Reed Jr., MD Chest CT 02/10/17 0000 Signed Impressions: Service Date/Time: Friday, February 10, 2017 16:52 - CONCLUSION: Coronary calcifications, negative for central pulmonary emboli. Mohinder Zavala MD FACR Assessment and Plan Problem List: (1) Acute coronary syndrome ICD Codes: I24.9 - Acute ischemic heart disease, unspecified Status: Acute Plan: s/p LHC showing patent stents and stable chronic total occlusion of LAD, preserved EF. Currently chest pain free and hemodynamically stable. No further cardiac work up. Continue aggressive medical management of CAD Plan: 1. Cont ASA, Plavix, statins, ACEi, Imdur Follow up with his Position Clerk upon discharge. (2) Diabetes ICD Codes: E11.9 - Type 2 diabetes mellitus without complications (3) Hyperlipidemia ICD Codes: E78.5 - Hyperlipidemia, unspecified (4) Tobacco abuse ICD Codes: Z72.0 - Tobacco use (5) HTN (hypertension) ICD Codes: I10 - Essential (primary) hypertension Problem Qualifiers (1) Diabetes: Qualified Codes: E11.8 - Type 2 diabetes mellitus with unspecified complications (2) Hyperlipidemia: Qualified Codes: E78.5 - Hyperlipidemia, unspecified Abdelrahman Soto MD Feb 12, 2017 09:30
[2017-02-12] MEDS ORDERED: METO25TA3 PO (12:42)
[2017-02-12] MEDS ORDERED: METF1000 PO (12:42)
[2017-02-12] MEDS ORDERED: PLAV75TA29 PO (12:42)
[2017-02-12] MEDS ORDERED: LISI-515 PO (12:42)
[2017-02-12] MEDS ORDERED: AMLO5 PO (12:42)
[2017-02-12] MEDS ORDERED: ATOR80TA45 PO (12:42)
[2017-02-12] MEDS ORDERED: ISOS30TA3 PO (12:42)
[2017-02-12] MEDS ORDERED: ASPI81 CHEW (12:42)
--- NOTE | 2017-02-12 12:42 | HHI.DCPOC ---
Discharge Care Plan Diagnosis: (1) Acute coronary syndrome (2) Diabetes (3) Hyperlipidemia (4) Tobacco abuse (5) HTN (hypertension) Goals to Promote Your Health * To prevent worsening of your condition and complications * To maintain your health at the optimal level Directions to Meet Your Goals Take your medications as prescribed Follow your dietary instruction Follow activity as directed Keep your appointments as scheduled Take your immunizations and boosters as scheduled If your symptoms worsen call your PCP, if no PCP go to Urgent Care Center or Emergency Room Smoking is Dangerous to Your Health. Avoid second hand smoke Call the 24-hour hour crisis hotline for domestic abuse at Xavier Merrill MD Feb 12, 2017 12:42
--- NOTE | 2017-02-12 12:52 | HHI.DS ---
Discharge Summary Admission Date Feb 10, 2017 at 19:50 Discharge Date: Feb 12, 2017 Admitting Diagnosis Chest pain (1) Acute coronary syndrome ICD Code: I24.9 - Acute ischemic heart disease, unspecified Diagnosis: Principal Status: Acute (2) Diabetes ICD Code: E11.9 - Type 2 diabetes mellitus without complications Diagnosis: Principal (3) Hyperlipidemia ICD Code: E78.5 - Hyperlipidemia, unspecified Diagnosis: Principal (4) HTN (hypertension) ICD Code: I10 - Essential (primary) hypertension Diagnosis: Principal (5) Tobacco abuse ICD Code: Z72.0 - Tobacco use Diagnosis: Principal Procedures DATE OF PROCEDURE February 11, 2017 PROCEDURE PERFORMED 1. Left heart catheterization. 2. Selective right and left coronary angiography. 3. Left ventriculogram. Brief History - From Admission Mr. Calvert is a very pleasant 66-year-old male with a history of coronary artery disease status post cardiac stenting 2 in 2004 in [place], hypertension , diabetes mellitus, and hyperlipidemia who is a "snowbird" from [place] who developed chest pain about half an hour before 2 PM today and presented to the emergency room for evaluation. He was found to have NSTEMI and symptoms consistent with ACS. The patient states he was at home working on chores when he began to experience moderate substernal chest pain that radiated to his left shoulder. His symptoms were accompanied by significant diaphoresis but he denies any associated shortness of breath, palpitations, nausea, or vomiting. He called his who told him he needed to go to the hospital. He reports his symptoms are similar to when he had his [place] in 2004. 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 All of his doctors are in [place]. In October 2016, he had symptoms of frequent coughing spells and syncopal episodes. He saw his slag motor operator in [place] and a cardiac catheterization was done at that time. He states that he had some blockage that would take a "lino hammer", to get through according to his slag motor operator but no further management was indicated. He was told he had COPD and needed to quit smoking which he did for 6 weeks. But then he started smoking again - though he reduce the amount from 2-1/2 packs per day to one pack per day. He has been working very hard lately on al[place]. He denies any recent fever, chills, shortness of breath, cough, cold symptoms, nausea, vomiting, diarrhea, black stool, tarry stool, or hematuria. CBC/BMP: 02/11/17 0246 02/11/17 0246 Significant Findings Laboratory Tests Test 02/10/17 15:00 02/10/17 17:50 02/10/17 21:00 02/10/17 21:10 Red Blood Count 4.09 MIL/MM3 (4.50-5.90) Hematocrit 37.5 % (39.0-51.0) Neutrophils (%) (Auto) 79.3 % (16.0-70.0) Prothrombin Time 12.3 SEC (9.8-11.6) Activated Partial Thromboplast Time 20.7 SEC (24.3-30.1) Blood Urea Nitrogen 20 MG/DL (7-18) Random Glucose 174 MG/DL (74-106) Estimat Glomerular Filtration Rate 56 ML/MIN (>89) Troponin I LESS THAN 0.02 NG/ML 0.18 NG/ML (0.02-0.05) 0.42 NG/ML (0.02-0.05) Test 02/11/17 02:46 02/11/17 09:10 Red Blood Count 4.17 MIL/MM3 (4.50-5.90) Hematocrit 38.1 % (39.0-51.0) Random Glucose 124 MG/DL (74-106) Estimat Glomerular Filtration Rate 73 ML/MIN (>89) Troponin I 0.59 NG/ML (0.02-0.05) Imaging Last Impressions Chest X-Ray 02/10/17 1452 Signed Impressions: Service Date/Time: Friday, February 10, 2017 15:01 - CONCLUSION: 1. Focal nodular density involving the right paratracheal stripe. Although this could relate to the patient's vasculature I cannot exclude a mediastinal mass. Consider CT of the thorax with IV contrast to further evaluate. 2. No acute infiltrate or effusion. Bob Reed Jr., MD Chest CT 02/10/17 0000 Signed Impressions: Service Date/Time: Friday, February 10, 2017 16:52 - CONCLUSION: Coronary calcifications, negative for central pulmonary emboli. Mohinder Zavala MD FACR PE at Discharge AAOx3 nad no resp distress CLear lungs BL Abdomen soft, nt, nd no edema in extremities Pt update on day of discharge PAtient denies cp/sob. Discussed case with Dr bello - patient cleared to be discharged home from slag motor operator perspective. Hospital Course (1) Acute coronary syndrome ICD Code: I24.9 - Acute ischemic heart disease, unspecified Status: Acute Plan: Mr. Calvert is a very pleasant 66-year-old male with a history of coronary artery disease status post cardiac stenting 2 in 2004 in [place], hypertension, diabetes mellitus, and hyperlipidemia who is a "snowbird" from [place] who developed chest pain about half an hour before 2 PM today and presented to the emergency room for evaluation. He was found to have NSTEMI and symptoms consistent with ACS. The patient was admitted to the medical floor, placed on heparin drip. - Nitroglycerin 0.4 mg sublingual when necessary for chest pain - Morphine 2 mg IV every 3 hours as needed for pain greater than5 - Continuous cardiac telemetry to monitor for arrhythmias. - Cardiology - The patient status post cardiac catheterization with findings of [place] vessel coronary artery disease with CT of the LAD, preserved ejection fraction and patent stent in the left circumflex artery. The patient should be on aspirin, Plavix, statins, beta rober, ESTEFANÍA inhibitors and long-acting nitrates. (2) Diabetes - Metformin held anticipating contrast use - Accu-Cheks before meals and at bedtime with low-dose NovoLog sliding scale coverage - Hypoglycemia protocol - Monitor trends and blood glucose readings and adjust treatments as indicated - Blood sugars remained stable (3) Hyperlipidemia Statins continue during hospital stay. Check fasting lipid profile. (4) HTN (hypertension) Continued home antihypertensive medications which include amlodipine and benazepril. BP remained stable during hospital stay. Blood pressure stable. (5) Tobacco abuse Advised smoking cessation. Offered nicotine patch, patient states he has at home. Assessment and Plan GI prophylaxis: At PPI. DVT prophylaxis: SCDs, on aspirin and Plavix. Pt Condition on Discharge: Stable Discharge Disposition: Discharge Home Discharge Time: <= 30 minutes Discharge Instructions DIET: Follow Instructions for: Heart Healthy Diet, Diabetic Diet Activities you can perform: Regular-No Restrictions Activities to Avoid: Strenuous Activity Follow up Referrals: Cardiology - 1 Week PCP Follow-up - 3 Weeks New Medications: Aspirin (Tgt Aspirin) 81 Mg Chw 81 MG CHEW DAILY for cad, #31 EA Atorvastatin (Atorvastatin) 80 Mg Tab 80 MG PO DAILY for Cholesterol Management, #31 TAB Clopidogrel (Plavix) 75 Mg Tab 75 MG PO DAILY for Blood Clot Prevention, #31 TAB Isosorbide Mononitrate ER (Isosorbide Mononitrate ER) 30 Mg Anastacia 30 MG PO DAILY@07 for cad, #31 TAB Lisinopril (Lisinopril) 20 Mg Tab 40 MG PO DAILY for Blood Pressure Management, #31 TAB Metoprolol Tartrate (Metoprolol Tartrate) 25 Mg Tab 12.5 MG PO Q12HR for cad, #62 TAB Continued Medications: Amlodipine (Norvasc) 5 Mg Tab 5 MG PO DAILY for Blood Pressure Management, #30 TAB 0 Refills (This prescription has been renewed) Metformin (Metformin) 1,000 Mg Tab 1000 MG PO DAILY for Blood Sugar Management, #30 TAB 0 Refills (This prescription has been renewed) With a meal Discontinued Medications: Aspirin (Aspirin) 81 Mg Chew 81 MG CHEW DAILY, TAB 0 Refills Benazepril (Benazepril) 40 Mg Tab 40 MG PO DAILY for Blood Pressure Management, #30 TAB 0 Refills Simvastatin (Simvastatin) 40 Mg Tab 40 MG PO HS for Cholesterol Management, #30 TAB 0 Refills Xavier Merrill MD Feb 12, 2017 12:52
== END 2017-02-12 13:35 | disposition home or self-care (01) | DRG 282 ==
LOC: NEPE 14:43 → NEDA 17:41 → OBSVTOIN 19:50 → HIME 20:55
PROVIDERS: ADMIT Hospitalist; ATTEND Hospitalist
PROC: B2111ZZ Fluoroscopy of Multiple Coronary Arteries using Low Osmolar Contrast (ICD-10-PCS; 2017-02-11)
PROC: B2151ZZ Fluoroscopy of Left Heart using Low Osmolar Contrast (ICD-10-PCS; 2017-02-11)
PROC: 4A023N7 Measurement of Cardiac Sampling and Pressure, Left Heart, Percutaneous Approach (ICD-10-PCS; principal; 2017-02-11 09:45)
DX: I21.4 Non-ST elevation (NSTEMI) myocardial infarction (principal); E11.9 Type 2 diabetes mellitus without complications; I10 Essential (primary) hypertension; I25.10 Atherosclerotic heart disease of native coronary artery without angina pectoris; E78.5 Hyperlipidemia, unspecified; F17.200 Nicotine dependence, unspecified, uncomplicated; I24.9 Acute ischemic heart disease, unspecified; I25.2 Old myocardial infarction; J44.9 Chronic obstructive pulmonary disease, unspecified; Z79.84 Long term (current) use of oral hypoglycemic drugs; Z82.49 Family history of ischemic heart disease and other diseases of the circulatory system; Z95.5 Presence of coronary angioplasty implant and graft
CPT/HCPCS: 71010; 71260; 80048; 80053; 82550; 82948; 83735; 84484; 85002; 85025; 85610; 85730; 87641; 93005; 93458; 99152; 99153; C1725; C1769; C1887; C1893; J1644; J1815; J2250; J3010; J7030; Q9967